=== PATIENT | female | born 1955 | race Caucasian/White ===

== ENCOUNTER → 2017-10-04 09:43 | Outpatient (CLI) | payer OTHER, SELFPAY ==
--- NOTE | 2017-10-04 | DI.US.S_ITS ---
PROCEDURE: US ABDOMEN LIMITED INDICATIONS: LIVER FIBROSIS TECHNIQUE: Real-time focused scanning was performed of the abdomen, with image documentation. COMPARISON: [facility], US, ABDOMEN COMPLETE, 04/24/2017, 10:13. FINDINGS: The liver is at the upper limits of normal measuring 16.7 cm with an overall appearance of coarse in echotexture. The gallbladder has been removed. No biliary dilation. Common bile duct measures 3.4 mm. The pancreas is normal in echotexture. There is a minimal borderline appearance of ductal prominence measuring approximately 15 mm. The spleen is mildly enlarged measuring 14.0 cm without focal lesion. The right kidney is identified and measures 12.1 cm. IMPRESSION: 1. Mild enlargement of the liver, which is decreased compared to prior exam, at which time it measured 22.1 cm. No focal lesion is identified. 2. Borderline prominence of the pancreatic duct not previously visualized. Recommend interval attention to this region on followup exams. Dictated by: Radhika Varner M.D. on 10/04/2017 at 11:52 Approved by: Radhika Varner M.D. on 10/04/2017 at 11:55
[2017-10-06 15:10] LABS: Alpha Fetoprotein 7.9 ng/mL (< 6.1)
== END ==
PROVIDERS: Visit Provider Internal Medicine Gastroenterology
DX: K74.0 Hepatic fibrosis (principal)
CPT/HCPCS: 36415; 76705; 82105

== ENCOUNTER → 2018-06-13 10:32 | Outpatient (CLI) | payer OTHER, SELFPAY ==
--- NOTE | 2018-06-13 | DI.US.S_ITS ---
PROCEDURE: US ABDOMEN LIMITED INDICATIONS: AT RISK FOR CANCER TECHNIQUE: Real-time focused scanning was performed of the abdomen, with image documentation. COMPARISON: [facility], US, US ABDOMEN LIMITED, 10/04/2017, 10:11. FINDINGS: There is a coarse liver echotexture, without a focal mass identified. The pancreas is unremarkable. No pancreatic ductal dilatation is seen. The spleen measures within normal limits at 12.4 cm. IMPRESSION: No liver masses are seen by ultrasound. If it would be helpful for clinical management decision making, please consider a dedicated liver protocol MRI for further evaluation (assuming that there is no contraindication). Dictated by: Carlos Manuel Sheppard M.D. on 06/13/2018 at 12:40 Approved by: Carlos Manuel Sheppard M.D. on 06/13/2018 at 12:41
== END ==
PROVIDERS: Visit Provider Internal Medicine Gastroenterology
DX: Z91.89 Other specified personal risk factors, not elsewhere classified (principal)
CPT/HCPCS: 36415; 76705; 82105

== ENCOUNTER → 2018-06-25 09:28 | Outpatient (CLI) | payer OTHER, SELFPAY ==
--- NOTE | 2018-06-25 | DI.MG.S_ITS ---
BILATERAL DIGITAL SCREENING MAMMOGRAM 3D/2D WITH CAD: 06/25/2018 CLINICAL: Routine screening. Comparison is made to exams dated: 06/11/2017 mammogram - [facility] and 05/01/2012 mammogram - [facility]. The tissue of both breasts is predominantly fatty. Current study was also evaluated with a Computer Aided Detection (CAD) system. No significant masses, calcifications, or other findings are seen in either breast. There has been no significant interval change. IMPRESSION: NEGATIVE There is no mammographic evidence of malignancy. A 1 year screening mammogram is recommended. This exam was interpreted at Station ID: [id number]. NOTE: For mammograms, a report in lay terms will be sent to the patient. Approximately 15% of breast malignancies will not be visualized mammographically. In the management of a palpable breast mass, a negative mammogram must not discourage biopsy of a clinically suspicious lesion. Electronically Signed By: Mary Beth moore/kieran:06/25/2018 12:05:22 copy to: NARA BERGMAN letter sent: Normal Exam ACR BI-RADS Category 1: Negative 3341F
== END ==
DX: Z12.31 Encounter for screening mammogram for malignant neoplasm of breast (principal)
CPT/HCPCS: 77063; 77067

== ENCOUNTER → 2018-07-09 09:13 | Outpatient (CLI) | payer OTHER, SELFPAY ==
[2018-07-09 18:07] LABS: HIV 1 and 2 Antibody NEGATIVE (NEGATIVE)
== END ==
DX: Z71.1 Person with feared health complaint in whom no diagnosis is made (principal)
CPT/HCPCS: 36415; 86703; 87522

== ENCOUNTER → 2018-07-18 10:42 | Outpatient (CLI) | payer OTHER, SELFPAY ==
[2018-07-18 12:05] LABS: Hematocrit 37.5 % (36-46); Hemoglobin 12.5 g/dL (12.0-16.0); Mean Corpuscular HGB Conc 33.3 % (30-36); Mean Corpuscular Hemoglobin 30.5 PG (26-34); Mean Corpuscular Volume 91.6 fL (80-100); Platelet Count 159 X10^3/uL (150-400); White Blood Cell Count 4.7 X10^3/uL (4.5-11.0)
[2018-07-18 12:19] LABS: Alanine Aminotransferase 28 IU/L (9-52); Albumin 4.8 g/dL (3.5-5.0); Albumin Globulin Ratio 1.4 (1.0-2.8); Alkaline Phosphatase 78 U/L (38-126); Aspartate Aminotransferase 17 IU/L (14-36); BUN Creatinine Ratio 31.4 (6-22); Bilirubin Total 0.3 mg/dL (0.2-1.3); Bilirubin Unconjugated 0.2 mg/dL (0.0-1.1); Blood Urea Nitrogen 22 mg/dL (7-17); Carbon Dioxide 26 mmol/L (22-32); Chloride 102 mmol/L (98-107); Estimated Glomerular Filt Rate > 60.0 mL/min (>60); Globulin 3.4 g/dL (1.7-4.1); Glucose 108 mg/dL (80-110); HEMOLYSIS < 15 (0-50); Potassium 4.4 mmol/L (3.4-5.1); Sodium 139 mmol/L (137-145); Total Protein 8.2 g/dL (6.3-8.2)
== END ==
PROVIDERS: Visit Provider Podiatrist
DX: B35.3 Tinea pedis (principal)
CPT/HCPCS: 36415; 80048; 80076; 85027

== ENCOUNTER 2018-09-18 16:50 | Emergency (ER) | payer OTHER, SELFPAY ==
[2018-09-18 16:57] VITALS: BP 140/79; PULSE 86; RESP 20; TEMP 36.9; O2SAT 97
--- NOTE | 2018-09-18 18:06 | ED_ITS ---
HPI - Back Pain/Injury General Chief Complaint: Back Pain/Injury Stated Complaint: PAIN, VOMITING Time Seen by Provider: 09/18/18 17:17 Source: patient Mode of arrival: ambulatory Limitations: no limitations History of Present Illness HPI Narrative: 63-year-old female here for evaluation of right-sided back pain. She also states that she vomited once. Does not know a specific incident however feels like it has been hurting for the past day or so. She thought maybe was worsened when she reached for something at store. No urinary symptoms. No change of bowel. No fevers. Has not taken anything for symptoms. States that it does radiate to her right hip. Related Data Previous Rx's Medication Instructions Recorded cyclobenzaprine 10 mg PO TID PRN #20 tab 09/18/18 tramadol 50 mg PO Q8H PRN #10 tab 09/18/18 Allergies Allergy/AdvReac Type Severity Reaction Status Date / Time Penicillins [PENICILLINS] Allergy Intermediate A CHILD Verified 07/09/18 08:28 Review of Systems Constitutional Denies headache(s) and Denies weakness ENT Ears, Nose, Mouth, and Throat: Denies headache(s) and Denies disequilibrium Cardiovascular Denies chest pain and Denies dyspnea Respiratory Denies dyspnea Gastrointestinal Gastrointestinal: Denies abdominal pain and Reports vomiting Genitourinary Denies dysuria and Denies urinary urgency Musculoskeletal Reports back pain Integumentary/Breasts Denies rash Neurologic Denies headache(s), Denies disequilibrium and Denies weakness Hematologic/Lymphatic Denies easy bleeding and Denies easy bruising [facility] Medical History Hepatitis C carrier (Acute) Surgical History History of third molar tooth extraction Status post cholecystectomy Social History marital status: unmarried,single number of children: 2 lives independently: Yes caregiver/support person: No housing: apartment pets and animals: No education level: high school current occupational exposures/hazards: Yes Smoking Status: Current every day smoker quit status: considering quitting alcohol intake: current Social History marital status: unmarried,single number of children: 2 lives independently: Yes caregiver/support person: No housing: apartment pets and animals: No education level: high school current occupational exposures/hazards: Yes Smoking Status: Current every day smoker quit status: considering quitting alcohol intake: current Exam Initial Vital Signs Initial Vital Signs: Vital Signs Temperature 98.4 F 09/18/18 16:57 Pulse Rate 86 09/18/18 16:57 Respiratory Rate 20 09/18/18 16:57 Blood Pressure 140/79 09/18/18 16:57 Pulse Oximetry 97 09/18/18 16:57 Const General: cooperative, well developed, well groomed and No acute distress Orientation: alert, awake and oriented x3 HENMT Head: normal to inspection and normocephalic Resp Effort & Inspection: normal respiratory effort Auscultation: clear to auscultation bilaterally Cardio Rate: regular rate Rhythm: regular rhythm GI Inspection: non-distended Palpation: soft Back/Spine/Pelvis Back: No CVA tenderness Skin Lesions: no lesions Rashes: no rashes Neuro General: alert and awake Cognition: normal cognition Speech: speech normal Extrem General: normal to inspection and capillary refill normal Course Orders Ordered: ED Orders 09/18/18 18:05 Urine Culture Stat Urine Microscopic Stat 09/18/18 18:28 CT kidney ureter bladder (KUB) Stat 09/18/18 18:45 Basic Metabolic Panel Stat Complete Blood Count AUTO DIFF Stat Discontinued Medications Ketorolac Tromethamine (Toradol) 30 mg IV NOW ONE Stop: 09/18/18 18:27 Last Admin: 09/18/18 18:42 Dose: 30 mg Vital Signs - 8 hr 09/18/18 16:57 09/18/18 19:33 Temperature 98.4 F Pulse Rate 86 91 H Respiratory Rate 20 19 Blood Pressure 140/79 Blood Pressure [Left Arm] 112/89 Pulse Oximetry 97 96 MDM - Back Pain/Injury Lab Data Attestation: I reviewed the patient's lab results. Result diagrams: 09/18/18 18:45 09/18/18 18:45 Lab Results 09/18/18 09/18/18 09/18/18 Range/Units 18:05 18:45 18:45 WBC 7.4 (4.5-11.0) X10^3/uL RBC 4.24 (4.0-5.2) X10^6/uL Hgb 13.1 (12.0-16.0) g/dL Hct 38.5 (36-46) % MCV 90.7 (80-100) fL MCH 31.0 (26-34) PG MCHC 34.2 (30-36) % RDW 15.4 H (11.6-14.8) % Plt Count 173 (150-400) X10^3/uL Neut % (Auto) 74.7 (50-75) % Lymph % (Auto) 17.2 L (25-40) % [place] % (Auto) 6.3 (3-14) % Eos % (Auto) 1.0 L (2-4) % Baso % (Auto) 0.8 (0-2) % Neut # (Auto) 5600 (3167-8667) /uL Lymph # (Auto) 1300 (9077-2522) /uL [place] # (Auto) 500 (0-900) /uL Eos # (Auto) 100 (0-450) /uL Baso # (Auto) 100 (0-100) /uL Sodium 139 (137-145) mmol/L Potassium 4.2 (3.4-5.1) mmol/L Chloride 101 (98-107) mmol/L Carbon Dioxide 28 (22-32) mmol/L BUN 15 (7-17) mg/dL Creatinine 0.60 (0.52-1.04) mg/dL Estimated GFR > 60.0 (>60) mL/min BUN/Creatinine Ratio 25.0 H (6-22) Glucose 121 H (80-110) mg/dL Calcium 9.7 (8.4-10.2) mg/dL Urine RBC 1-5/hpf (0-5/HPF) Urine WBC 1-5/hpf (0-5/HPF) Ur Squamous Epith Cells 0-1 /hpf (0-5/HPF) Urine Bacteria Occasional (0-1) (None) Granular Casts 0-1/lpf (None) Urine Mucus 2+ H (Negative) Ur Culture Indicated? Specimen cultured Urine Dip Bedside Urine Glucose Negative Bedside Urine Bilirubin - Negative Bedside Urine Ketone - Negative Urine Specific [place] 1.030 Bedside Urine Occult Blood +/- Bedside Urine pH 5.5 Bedside Urine Protein - Negative Bedside Urine Urobilinogen - Negative Bedside Urine Nitrite - Negative Bedside Urine Leukocytes ++ [address] scan - abdomen: Radiologist's impression: Kimmie Brown 63 F [address] [address] [address] Scan Report Signed Patient: Kimmie Brown JMR#: [id number] : 5Acct:[id number] Age/Sex: 63 / FDate of Service: 09/18/18 Loc: ED Accession Number: [id number] Procedure: CT kidney ureter bladder (KUB) Ordering Provider: Mike Burnett D.O. PROCEDURE: CT KIDNEY URETER BLADDER (KUB) INDICATIONS: possible right sided stone TECHNIQUE: Noncontrast 5 mm thick sections acquired from the diaphragms to the symphysis. 5 mm thick coronal and sagittal reformats were then performed. For radiation dose reduction, the following was used: automated exposure control, adjustment of mA and/or kV according to patient size. COMPARISON: None. FINDINGS: Image quality: Excellent. Lung bases: Lung bases are clear. Heart size is normal. Urinary system: Both kidneys are normal in size. No kidney stones. No hydronephrosis or perinephric fat stranding. Both ureters appear non-dilated throughout their expected courses. Bladder wall thickness is normal; no calcified bladder stones. Other solid organs: Liver is normal in size. Gallbladder appears previously resected. Pancreas is normal in contours. Spleen is normal in size. No adrenal nodules. Peritoneum and bowel: Unenhanced bowel loops demonstrate normal wall thickness and caliber. No free fluid or air. Nodes and vessels: No retroperitoneal or mesenteric adenopathy by size criteria. Aorta and inferior vena cava are normal in caliber. Abdominal wall: No ventral hernias. Pelvis: No free pelvic fluid. No inguinal hernias or adenopathy. Note is made of a right adnexal 2.8 cm cyst. Cyst rupture is not seen. Bones: No suspicious bony lesions. No vertebral body compression fractures. IMPRESSION: No urinary tract stone or hydronephrosis found on the right. There is a findings several pelvic phleboliths none of which appear in a position that could be potentially within the lumen of either the right or left ureter. 2.8 cm right ovarian cyst may explain current right-sided symptomatology. Dictated by: Doyle Wade M.D. on 09/18/2018 at 19:24 Approved by: Doyle Wade M.D. on 09/18/2018 at 19:26 MDM Narrative Medical decision making narrative: CT scan negative for kidney stone. Labs unremarkable. Patient was given Toradol here in the emergency department. She expressed multiple times that she just wanted something ?to go to sleep ?informed her that we did not have any medication for that particular issue. She stated she cannot take Tylenol or Motrin because of her hepatitis C. the patient did not have a ride home. Will hold on further workup for now. I did give her the phone number for the health resources coordinator in the area in order to make contact the primary provider. She has multiple times for me to make a referral for her to see physical therapy and informed her that I could not do that and she needed to talk with a primary provider. Patient was given return precautions. She expressed understanding. Discharge Plan Departure Patient Disposition: Home Clinical Impression: Back pain Qualifiers: Back pain location: low back pain Chronicity: acute Back pain laterality: left Sciatica presence: without sciatica Qualified Code(s): M54.5 - Low back pain Discharge Date/Time: 09/18/18 19:54 Interventions: ED Discharge Assessment Last Done: 09/18/18 19:53 Instructions: Back Pain (Alternative Therapy), DI for Low Back Pain, Activity May Be Better then Rest for Low Back Pain Recovery Activity Restrictions/Additional Instructions: Recommend you contact the health human resources executive at [phone] to help with establishing a primary provider here in the area. Recommend you stay as active as possible. Take the medications as directed. Prescriptions: New cyclobenzaprine 10 mg tablet 10 mg PO TID PRN (Reason: muscle spasm) Qty: 20 RF: 0 tramadol 50 mg tablet 50 mg PO Q8H PRN (Reason: pain) Qty: 10 RF: 0 Referrals: Charles Llamas MD [Primary Care Provider] -
--- NOTE | 2018-09-18 18:09 | PC.NURSE ---
Pt reports reaching for item at [employer] with sudden onset of pain to flank. unable to sit still. Pacing in room. reports causing nausea. Keeps asking for pain management.
--- NOTE | 2018-09-18 18:28 | DI.CT.S_ITS ---
PROCEDURE: CT KIDNEY URETER BLADDER (KUB) INDICATIONS: possible right sided stone TECHNIQUE: Noncontrast 5 mm thick sections acquired from the diaphragms to the symphysis. 5 mm thick coronal and sagittal reformats were then performed. For radiation dose reduction, the following was used: automated exposure control, adjustment of mA and/or kV according to patient size. COMPARISON: None. FINDINGS: Image quality: Excellent. Lung bases: Lung bases are clear. Heart size is normal. Urinary system: Both kidneys are normal in size. No kidney stones. No hydronephrosis or perinephric fat stranding. Both ureters appear non-dilated throughout their expected courses. Bladder wall thickness is normal; no calcified bladder stones. Other solid organs: Liver is normal in size. Gallbladder appears previously resected. Pancreas is normal in contours. Spleen is normal in size. No adrenal nodules. Peritoneum and bowel: Unenhanced bowel loops demonstrate normal wall thickness and caliber. No free fluid or air. Nodes and vessels: No retroperitoneal or mesenteric adenopathy by size criteria. Aorta and inferior vena cava are normal in caliber. Abdominal wall: No ventral hernias. Pelvis: No free pelvic fluid. No inguinal hernias or adenopathy. Note is made of a right adnexal 2.8 cm cyst. Cyst rupture is not seen. Bones: No suspicious bony lesions. No vertebral body compression fractures. IMPRESSION: No urinary tract stone or hydronephrosis found on the right. There is a findings several pelvic phleboliths none of which appear in a position that could be potentially within the lumen of either the right or left ureter. 2.8 cm right ovarian cyst may explain current right-sided symptomatology. Dictated by: Doyle Wade M.D. on 09/18/2018 at 19:24 Approved by: Doyle Wade M.D. on 09/18/2018 at 19:26
[2018-09-18 18:33] LABS: Bacteria Urine Occasional (0-1); Culture Indicated Urine Specimen Cultured; Granular Casts Urine 0-1/LPF; Mucus Urine 2+ (Negative); RBC Urine 1-5/HPF (0-5/HPF); Squamous Epithelial Cell Urine 0-1 /HPF (0-5/HPF); WBC Urine 1-5/HPF (0-5/HPF)
[2018-09-18] MEDS: KETOROLAC 60 MG/2 ML VIAL 30 MG IV (18:42)
[2018-09-18 18:56] LABS: Add Manual Diff / Slide Review NO; Basophils Absolute Auto 100 /uL (0-100); Basophils Percent Auto 0.8 % (0-2); Eosinophils Absolute Auto 100 /uL (0-450); Hematocrit 38.5 % (36-46); Hemoglobin 13.1 g/dL (12.0-16.0); Lymphocytes Absolute Auto 1300 /uL (1100-4500); Lymphocytes Percent Auto 17.2 % (25-40); Mean Corpuscular HGB Conc 34.2 % (30-36); Mean Corpuscular Volume 90.7 fL (80-100); Monocytes Absolute Auto 500 /uL (0-900); Monocytes Percent Auto 6.3 % (3-14); Neutrophils Absolute Auto 5600 /uL (1500-7000); Neutrophils Percent Auto 74.7 % (50-75); Platelet Count 173 X10^3/uL (150-400); Red Blood Cell Count 4.24 X10^6/uL (4.0-5.2); Red Cell Distribution Width 15.4 % (11.6-14.8); White Blood Cell Count 7.4 X10^3/uL (4.5-11.0)
[2018-09-18 19:07] LABS: Blood Urea Nitrogen 15 mg/dL (7-17); Calcium 9.7 mg/dL (8.4-10.2); Carbon Dioxide 28 mmol/L (22-32); Chloride 101 mmol/L (98-107); Estimated Glomerular Filt Rate > 60.0 mL/min (>60); Glucose 121 mg/dL (80-110); HEMOLYSIS < 15 (0-50); Potassium 4.2 mmol/L (3.4-5.1); Sodium 139 mmol/L (137-145)
[2018-09-18 19:33] VITALS: BP 112/89; PULSE 91; RESP 19; O2SAT 96
== END 2018-09-18 19:54 | disposition home or self-care (01) ==
PROVIDERS: Emergency Provider Emergency Medicine
DX: M54.5 Low back pain (principal); R11.11 Vomiting without nausea
CPT/HCPCS: 36591; 74176; 80048; 81003; 81015; 85025; 87086; 96374; 99282; 99284; J1885

== ENCOUNTER → 2018-10-03 09:19 | Outpatient (CLI) | payer OTHER, SELFPAY ==
[2018-10-03 11:20] LABS: Cancer Antigen 125 6 U/mL (0-35)
[2018-10-05 13:50] LABS: Human HE4 Antigen 46 pmol/L
== END ==
DX: N83.9 Noninflammatory disorder of ovary, fallopian tube and broad ligament, unspecified (principal)
CPT/HCPCS: 36415; 86304; 86305

== ENCOUNTER → 2018-12-10 14:26 | Outpatient (CLI) | payer OTHER, SELFPAY ==
[2018-12-10 15:12] LABS: Add Manual Diff / Slide Review NO; Basophils Absolute Auto 0 /uL (0-100); Basophils Percent Auto 0.9 % (0-2); Eosinophils Absolute Auto 200 /uL (0-450); Eosinophils Percent Auto 3.6 % (2-4); Hematocrit 35.9 % (36-46); Hemoglobin 12.1 g/dL (12.0-16.0); Lymphocytes Absolute Auto 1400 /uL (1100-4500); Lymphocytes Percent Auto 28.6 % (25-40); Mean Corpuscular HGB Conc 33.6 % (30-36); Mean Corpuscular Hemoglobin 30.9 PG (26-34); Mean Corpuscular Volume 91.8 fL (80-100); Monocytes Absolute Auto 500 /uL (0-900); Monocytes Percent Auto 10.9 % (3-14); Neutrophils Absolute Auto 2600 /uL (1500-7000); Platelet Count 143 X10^3/uL (150-400); Red Blood Cell Count 3.91 X10^6/uL (4.0-5.2); Red Cell Distribution Width 15.8 % (11.6-14.8); White Blood Cell Count 4.7 X10^3/uL (4.5-11.0)
[2018-12-10 15:56] LABS: BUN Creatinine Ratio 24.4 (6-22); Blood Urea Nitrogen 22 mg/dL (7-17); Calcium 9.9 mg/dL (8.4-10.2); Carbon Dioxide 27 mmol/L (22-32); Chloride 102 mmol/L (98-107); Estimated Glomerular Filt Rate > 60.0 mL/min (>60); Glucose 109 mg/dL (80-110); HEMOLYSIS < 15 (0-50); Potassium 4.2 mmol/L (3.4-5.1); Sodium 139 mmol/L (137-145)
== END ==
PROVIDERS: PCP Student in an Organized Health Care Education/Training Program; Visit Provider Hospitalist
DX: R42 Dizziness and giddiness (principal)
CPT/HCPCS: 36415; 80048; 85025

== ENCOUNTER → 2018-12-13 13:21 | Outpatient (CLI) | payer OTHER, SELFPAY ==
--- NOTE | 2018-12-13 13:25 | DI.US.S_ITS ---
PROCEDURE: US PERIPH VENOUS LOW EXTREM LT INDICATIONS: LEFT LEG PAIN TECHNIQUE: Real-time imaging, as well as color and pulse Doppler interrogation, were performed of the lower extremity deep veins from the inguinal ligament to the popliteal fossa. COMPARISON: None. FINDINGS: The common femoral, femoral and popliteal veins are normally compressible, and free of intraluminal thrombus. Color and pulse Doppler demonstrate normal phasic intraluminal flow. There is normal augmentation response to distal compression maneuver. IMPRESSION: No DVT found. Dictated by: Doyle Wade M.D. on 12/13/2018 at 14:49 Approved by: Doyle Wade M.D. on 12/13/2018 at 14:57
== END ==
PROVIDERS: PCP Student in an Organized Health Care Education/Training Program; Visit Provider Hospitalist
DX: M79.605 Pain in left leg (principal)
CPT/HCPCS: 93971

== ENCOUNTER → 2019-01-09 14:40 | Outpatient (CLI) | payer OTHER, SELFPAY ==
--- NOTE | 2019-01-09 | DI.US.S_ITS ---
PROCEDURE: US ABDOMEN LIMITED INDICATIONS: LIVER CELL CARCINOMA TECHNIQUE: Real-time focused scanning was performed of the abdomen, with image documentation. COMPARISON: [facility], CT, CT KIDNEY URETER BLADDER (KUB), 09/18/2018, 18:53. [facility], US, US ABDOMEN LIMITED, 06/13/2018, 11:09. FINDINGS: Liver is diffusely increased in echogenicity. No focal hepatic abnormalities identified. Normal hepatic size. Gallbladder surgically absent. No biliary dilatation. Normal pancreas. Right kidney grossly normal. IMPRESSION: Increased hepatic echogenicity noted possibly related to hepatic steatosis but other sources of hepatocellular disease cannot be excluded. Recommend clinical correlation. Dictated by: Jethro CAMPO Interpreted: Price Mcdowell MD on 01/09/2019 at 16:37 Approved by: Price Mcdowell M.D. on 01/09/2019 at 17:31
[2019-01-11 15:14] LABS: Alpha Fetoprotein 5.4 ng/mL (< 6.1)
== END ==
PROVIDERS: PCP Student in an Organized Health Care Education/Training Program; Visit Provider Internal Medicine Gastroenterology
DX: C22.0 Liver cell carcinoma (principal); Z91.89 Other specified personal risk factors, not elsewhere classified
CPT/HCPCS: 36415; 76705; 82105

== ENCOUNTER → 2019-02-20 15:02 | Outpatient (CLI) | payer OTHER, SELFPAY ==
[2019-02-20 15:31] LABS: Hemoglobin A1C% w Est Avg Glu 5.3 % (4.0-6.0)
[2019-02-20 16:10] LABS: Cholesterol 153 mg/dL (140-199); HDL Cholesterol 46 mg/dL (40-60); LDL Cholesterol Calculated 79 mg/dL (<100); Triglycerides 140 mg/dL (35-150)
== END ==
PROVIDERS: PCP Student in an Organized Health Care Education/Training Program; Visit Provider Student in an Organized Health Care Education/Training Program
DX: I67.9 Cerebrovascular disease, unspecified (principal); R73.9 Hyperglycemia, unspecified
CPT/HCPCS: 36415; 80061; 83036

== ENCOUNTER → 2019-12-10 17:09 | Outpatient (CLI) | payer OTHER, SELFPAY ==
--- NOTE | 2019-12-10 17:35 | DI.MG.S_ITS ---
Patient Name: MAGED CABEZAS date: 1955 Sex: F Attending Physician: Muriel Indications: Date: 12/10/2019 17:28 At the request of: SHANI FORRESTER Procedure: MM screening mammo BI BILATERAL DIGITAL SCREENING MAMMOGRAM 3D/2D WITH CAD: 12/10/2019 CLINICAL: Routine screening. Comparison is made to exams dated: 06/25/2018 mammogram - [facility], 06/11/2017 mammogram - [facility], and 05/01/2012 mammogram - [facility]. There are scattered fibroglandular elements in both breasts. Current study was also evaluated with a Computer Aided Detection (CAD) system. No significant masses, calcifications, or other findings are seen in either breast. There has been no significant interval change. IMPRESSION: NEGATIVE There is no mammographic evidence of malignancy. A 1 year screening mammogram is recommended. This exam was interpreted at Station ID: [id number]. NOTE: For mammograms, a report in lay terms will be sent to the patient. Approximately 15% of breast malignancies will not be visualized mammographically. In the management of a palpable breast mass, a negative mammogram must not discourage biopsy of a clinically suspicious lesion. Electronically Signed By: Todd de santiago/kieran:12/11/2019 08:41:31 letter sent: Normal Exam ACR BI-RADS Category 1: Negative 3341F
== END ==
PROVIDERS: PCP Student in an Organized Health Care Education/Training Program
DX: Z12.31 Encounter for screening mammogram for malignant neoplasm of breast (principal)
CPT/HCPCS: 77063; 77067

== ENCOUNTER → 2019-12-11 11:56 | Outpatient (CLI) | payer OTHER, SELFPAY ==
[2019-12-12 10:09] LABS: COVID19 Sendout Not Detected (Not Detected)
== END ==
PROVIDERS: PCP Student in an Organized Health Care Education/Training Program; Visit Provider Nurse Practitioner
DX: Z11.59 Encounter for screening for other viral diseases (principal)
CPT/HCPCS: 87635

== ENCOUNTER → 2019-12-15 15:22 | Outpatient (CLI) | payer OTHER, SELFPAY | PROVIDERS: PCP Student in an Organized Health Care Education/Training Program; Visit Provider Physician Assistant | DX: R30.0 Dysuria (principal); Z11.59 Encounter for screening for other viral diseases | CPT/HCPCS: 87070; 87086 ==

== ENCOUNTER → 2020-08-04 09:27 | Outpatient (CLI) | payer OTHER, SELFPAY ==
[2020-08-04 11:20] LABS: COVID19 -Nasal RAPID Negative (Negative)
== END ==
PROVIDERS: PCP Student in an Organized Health Care Education/Training Program; Visit Provider Surgery
DX: Z20.822 Contact with and (suspected) exposure to COVID-19 (principal)
CPT/HCPCS: 87635; C9803

== ENCOUNTER 2020-08-05 14:02 | Day surgery (SDC) | payer OTHER, SELFPAY ==
[2020-08-05] MEDS: LACTATED RINGERS 1,000 ML 200 ML IV (15:02)
[2020-08-05 15:09] VITALS: BP 126/68; PULSE 84; RESP 20; TEMP 36.7; O2SAT 96; BMI 29.6
--- NOTE | 2020-08-05 15:27 | PM.PREOP ---
Pre-operative Note Interval Note History & Physical reviewed/Exam performed by Physician: Yes Changes to H&P: No
[2020-08-05] MEDS: MIDAZOLAM 5 MG/5 ML VIAL IV (15:54)
[2020-08-05] MEDS: fentaNYL 250 MCG/5 ML INJ IV (15:54)
[2020-08-05] MEDS: LIDOCAINE 4% SOLN 50 ML 20 ML TOP (16:02)
--- NOTE | 2020-08-05 16:10 | PM.OP.ENDO ---
Operative Date/Time/Diagnoses Date of procedure: 08/05/20 Time of procedure: 16:10 Pre-op diagnosis: Esophageal dysphagia Post-op diagnosis: same Procedure & Clinicians Study performed: Esophagoduodenoscopy, colonoscopy Same procedure as scheduled: Yes Indications: Screening colonoscopy, esophageal dysphagia Surgeon: Rahul Mosqueda Procedure Notes Procedure in detail: Medications: Conscious sedation using 5mg IV midazolam and 150mcg IV of fentanyl The history and physical was performed/updated and the patient is ASA class is 2. The procedure was discussed in detail with the patient. Potential risks complications including infection, bleeding, missed diagnosis, perforation, need for surgery, and were explained. Their questions were answered and informed consent was obtained. Patient placed in left lateral decubitus position. Time out was performed. Procedural sedation was administered with Versed and Fentanyl. A bite block was placed. the scope was inserted into the mouth and advanced through the esophagus and into the stomach. There was no esophageal stricture. The pylorus was intubated and the duodenum was normal to the 2nd portion. The scope was retroflexed within the stomach and there was a small hiatal hernia. No ulcers, or gastritis. The scope was withdrawn into the esophagus the Z line was seen at 40 cm from the incisions. There was no Contreras's esophagitis or masses or strictures. Stomach was desufflated and scope removed. Patient tolerated procedure well. Examination began with a thorough inspection of the perianal area there was no evidence of fissures, fistulae, external hemorrhoids or cutaneous malignancy. The colonoscopy scope was then placed into the anal canal and was advanced to the cecum, which was identified by the ileocecal valve, the appendiceal orifice and the confluence of the taenia. The scope was then slowly withdrawn examining colon thoroughly in all directions, irrigating it of any residual stool. 1. No masses or polyps 2. Sigmoid diverticulosis The patient tolerated the procedure well. They will be discharged once criteria are met. The prep was of good/excellent quality. The withdrawl time was 7 minutes. The sedation time was 25 minutes. Specimen(s): none sent Complications: none Impression: Normal colonoscopy and esophagoduodenoscopy Post-procedure Recommendations: Colonscopy in 10 years and Reflux diet Disposition: same day surgery
[2020-08-05 16:11] VITALS: BP 121/67; PULSE 94; RESP 14; TEMP 36.1; O2SAT 93
[2020-08-05 16:21] VITALS: BP 116/68; PULSE 88; RESP 16; O2SAT 94
[2020-08-05 16:26] VITALS: BP 112/69; PULSE 85; RESP 14; TEMP 36.3; O2SAT 94
== END 2020-08-05 16:49 | disposition home or self-care (01) ==
PROVIDERS: PCP Student in an Organized Health Care Education/Training Program; Referring Provider Surgery; Visit Provider Surgery
PROC: 0DJ08ZZ Inspection of Upper Intestinal Tract, Via Natural or Artificial Opening Endoscopic (ICD-10-PCS; CPT 43235; principal; 2020-08-05 15:15)
PROC: 0DJD8ZZ Inspection of Lower Intestinal Tract, Via Natural or Artificial Opening Endoscopic (ICD-10-PCS; CPT 45378; 2020-08-05 15:15)
DX: Z12.11 Encounter for screening for malignant neoplasm of colon (principal); R13.10 Dysphagia, unspecified; F17.210 Nicotine dependence, cigarettes, uncomplicated; B19.20 Unspecified viral hepatitis C without hepatic coma; K57.30 Diverticulosis of large intestine without perforation or abscess without bleeding
CPT/HCPCS: 43235; 45378; 99152; J2250; J3010

== ENCOUNTER → 2020-12-23 13:47 | Outpatient (CLI) | payer OTHER, SELFPAY ==
[2020-12-23 14:20] LABS: Add Manual Diff / Slide Review NO; Basophils Absolute Auto 100 /uL (0-100); Eosinophils Absolute Auto 200 /uL (0-450); Eosinophils Percent Auto 3.2 % (2-4); Hematocrit 35.8 % (36-46); Lymphocytes Absolute Auto 1600 /uL (1100-4500); Lymphocytes Percent Auto 32.3 % (25-40); Mean Corpuscular HGB Conc 33.5 % (30-36); Mean Corpuscular Hemoglobin 30.5 PG (26-34); Mean Corpuscular Volume 90.9 fL (80-100); Monocytes Absolute Auto 500 /uL (0-900); Monocytes Percent Auto 9.4 % (3-14); Neutrophils Absolute Auto 2600 /uL (1500-7000); Neutrophils Percent Auto 54.1 % (50-75); Platelet Count 170 X10^3/uL (150-400); Red Blood Cell Count 3.94 X10^6/uL (4.0-5.2); Red Cell Distribution Width 15.3 % (11.6-14.8); White Blood Cell Count 4.8 X10^3/uL (4.5-11.0)
[2020-12-23 14:37] LABS: Alanine Aminotransferase 14 IU/L (<35); Albumin 4.9 g/dL (3.5-5.0); Albumin Globulin Ratio 1.5 (1.0-2.8); Alkaline Phosphatase 58 U/L (38-126); Aspartate Aminotransferase 21 IU/L (14-36); Bilirubin Total 0.6 mg/dL (0.2-1.3); Blood Urea Nitrogen 18 mg/dL (7-17); Calcium 9.7 mg/dL (8.4-10.2); Carbon Dioxide 24 mmol/L (22-32); Chloride 106 mmol/L (98-107); Cholesterol 169 mg/dL (140-199); Estimated Glomerular Filt Rate > 60.0 mL/min (>60); Globulin 3.3 g/dL (1.7-4.1); Glucose 99 mg/dL (80-110); HDL Cholesterol 49 mg/dL (40-60); HEMOLYSIS < 15 (0-50); LDL Cholesterol Calculated 92 mg/dL (<100); Potassium 4.2 mmol/L (3.4-5.1); Sodium 138 mmol/L (137-145); Total Protein 8.2 g/dL (6.3-8.2); Triglycerides 141 mg/dL (35-150)
[2020-12-23 15:11] LABS: Vitamin D 25 Hydroxy (D3) 36.5 ng/mL (30.0-100.0)
[2020-12-23 15:29] LABS: Vitamin B12 316 pg/mL (239-931)
[2020-12-24 06:07] LABS: Alpha Fetoprotein 4.8 ng/mL (0.0-8.3)
== END ==
PROVIDERS: PCP Student in an Organized Health Care Education/Training Program; Referring Provider Student in an Organized Health Care Education/Training Program; Visit Provider Student in an Organized Health Care Education/Training Program
DX: B18.2 Chronic viral hepatitis C (principal); Z87.19 Personal history of other diseases of the digestive system; E55.9 Vitamin D deficiency, unspecified; Z13.220 Encounter for screening for lipoid disorders
CPT/HCPCS: 36415; 80053; 80061; 82105; 82306; 82607; 85025; 86900; 86901

== ENCOUNTER → 2020-12-27 13:58 | Outpatient (CLI) | payer OTHER, SELFPAY ==
--- NOTE | 2020-12-27 | DI.MG.S_ITS ---
BILATERAL DIGITAL SCREENING MAMMOGRAM 3D/2D WITH CAD: 12/27/2020 CLINICAL: Routine screening. Comparison is made to exams dated: 12/10/2019 mammogram, 06/25/2018 mammogram - [facility], and 06/11/2017 mammogram - [facility]. There are scattered fibroglandular elements in both breasts. Current study was also evaluated with a Computer Aided Detection (CAD) system. There is an asymmetry in the left breast middle depth superior region seen on the mediolateral oblique view only. No other significant masses, calcifications, or other findings are seen in either breast. IMPRESSION: INCOMPLETE: NEEDS ADDITIONAL IMAGING EVALUATION The asymmetry in the left breast most likely is fibroglandular tissue with superimposition of tissue but is indeterminate. Additional views with possible ultrasound are recommended. This exam was interpreted at Station ID: [id number]. NOTE: For mammograms, a report in lay terms will be sent to the patient. Approximately 15% of breast malignancies will not be visualized mammographically. In the management of a palpable breast mass, a negative mammogram must not discourage biopsy of a clinically suspicious lesion. Electronically Signed By: Daniel Hanks acr/:12/27/2020 17:31:47 letter sent: Additional Imaging Needed ACR BI-RADS Category 0: Incomplete 3340F
== END ==
PROVIDERS: PCP Student in an Organized Health Care Education/Training Program; Referring Provider Student in an Organized Health Care Education/Training Program; Visit Provider Student in an Organized Health Care Education/Training Program
DX: Z12.31 Encounter for screening mammogram for malignant neoplasm of breast (principal)
CPT/HCPCS: 77063; 77067

== ENCOUNTER → 2021-01-11 13:35 | Outpatient (CLI) | payer OTHER, SELFPAY ==
[2021-01-11 14:20] LABS: Appearance Urine UA CLEAR; Bilirubin Urine UA NEGATIVE (NEGATIVE); Color Urine UA YELLOW; Glucose Urine UA NEGATIVE (Negative); Ketones Urine UA NEGATIVE (NEGATIVE); Leukocyte Esterase Urine UA 1+ (NEGATIVE); Nitrite Urine UA NEGATIVE (Negative); Occult Blood Urine UA 3+ (Negative); Protein Urine UA NEGATIVE (Negative); Specific Gravity Urine UA >=1.030 (1.000-1.035); Urobilinogen Urine UA 0.2 E.U./dL (0.2)
[2021-01-11 14:26] LABS: Bacteria Urine None Seen; Culture Indicated Urine Specimen Cultured; RBC Urine 5-10/HPF (0-5/HPF); Squamous Epithelial Cell Urine 0-1 /HPF (0-5/HPF); WBC Urine 10-30/HPF (0-5/HPF)
== END ==
PROVIDERS: PCP Student in an Organized Health Care Education/Training Program; Referring Provider Student in an Organized Health Care Education/Training Program; Visit Provider Student in an Organized Health Care Education/Training Program
DX: R31.9 Hematuria, unspecified (principal)
CPT/HCPCS: 81001; 87077; 87086; 87186

== ENCOUNTER → 2021-01-14 08:49 | Outpatient (CLI) | payer OTHER, SELFPAY ==
--- NOTE | 2021-01-14 | DI.MG.S_ITS ---
UNILATERAL LEFT DIGITAL DIAGNOSTIC MAMMOGRAM 3D/2D WITH ADDITIONAL VIEWS: 01/14/2021 CLINICAL: Additional evaluation requested from prior study. Comparison is made to exams dated: 12/27/2020 mammogram, 12/10/2019 mammogram, and 06/25/2018 mammogram - [facility]. There are scattered fibroglandular elements in left breast. The previously described equal density asymmetry in the left breast middle depth lateral region seen on the craniocaudal view only is no longer seen and is consistent with summation artifact. No other significant masses or calcifications are seen in the breast. IMPRESSION: BENIGN The previously described asymmetry disperses with additional views and is consistent with summation artifact. There is no mammographic evidence of malignancy. A 1 year screening mammogram is recommended. Findings and recommendations were conveyed to the patient during today's evaluation. This exam was interpreted at Station ID: [id number]. NOTE: For mammograms, a report in lay terms will be sent to the patient. Approximately 15% of breast malignancies will not be visualized mammographically. In the management of a palpable breast mass, a negative mammogram must not discourage biopsy of a clinically suspicious lesion. Electronically Signed By: Jensen Denson M.D. aty/:01/14/2021 09:13:30 letter sent: Normal Exam ACR BI-RADS Category 2: Benign Finding(s) 3342F
== END ==
PROVIDERS: PCP Student in an Organized Health Care Education/Training Program; Referring Provider Student in an Organized Health Care Education/Training Program; Visit Provider Student in an Organized Health Care Education/Training Program
DX: R92.8 Other abnormal and inconclusive findings on diagnostic imaging of breast (principal); N64.89 Other specified disorders of breast
CPT/HCPCS: 77065; G0279

== ENCOUNTER → 2021-02-21 08:24 | Outpatient (CLI) | payer OTHER, SELFPAY ==
--- NOTE | 2021-02-21 08:25 | DI.US.S_ITS ---
PROCEDURE: US PELVIC COMPLETE INDICATIONS: PAIN TECHNIQUE: Real-time scanning was performed of the pelvic organs, with image documentation. Additional endovaginal scanning was necessary due to incomplete visualization of the adnexal and endometrial structures by transabdominal scanning. COMPARISON: [facility], US, US PELVIC COMPLETE, 10/03/2018, 9:07. FINDINGS: Uterus: Uterus is normal in size at 6.1 x 2.7 x 4.2 cm. The endometrium measures 1.4 mm in combined thickness. Fluid is present within the canal, unchanged. Ovaries: Right ovary measures 4.1 x x 2.4 x 3.3 cm. Mild appearance of increased echogenicity in the right ovary is present. Left ovary is not visualized. Other: No pathologic free abdominal or pelvic fluid. IMPRESSION: 1. Mild nonspecific appearance of echogenicity in the right ovary. This could be artifactual. 6 week interval followup is recommended. Dictated by: Radhika Varner M.D. on 02/21/2021 at 11:55 Approved by: Radhika Varner M.D. on 02/21/2021 at 12:04
== END ==
PROVIDERS: PCP Student in an Organized Health Care Education/Training Program; Referring Provider Obstetrics & Gynecology; Visit Provider Obstetrics & Gynecology
DX: R10.2 Pelvic and perineal pain (principal)
CPT/HCPCS: 76830; 76856

== ENCOUNTER → 2021-08-05 15:55 | Outpatient (CLI) | payer OTHER, SELFPAY ==
[2021-08-05 17:41] LABS: Appearance Urine UA CLEAR; Bilirubin Urine UA NEGATIVE (NEGATIVE); Color Urine UA YELLOW; Glucose Urine UA NEGATIVE (Negative); Ketones Urine UA NEGATIVE (NEGATIVE); Leukocyte Esterase Urine UA NEGATIVE (NEGATIVE); Nitrite Urine UA NEGATIVE (Negative); Occult Blood Urine UA 3+ (Negative); Protein Urine UA NEGATIVE (Negative); Specific Gravity Urine UA >=1.030 (1.000-1.035); Urobilinogen Urine UA 0.2 E.U./dL (0.2)
[2021-08-05 18:09] LABS: Amorphous Sediment Urine 2+; Bacteria Urine Occasional (0-1); Culture Indicated Urine Cult Not Indicated; RBC Urine 5-10/HPF (0-5/HPF); Squamous Epithelial Cell Urine 5-10 /HPF (0-5/HPF); WBC Urine None Seen (0-5/HPF)
== END ==
PROVIDERS: PCP Student in an Organized Health Care Education/Training Program; Referring Provider Student in an Organized Health Care Education/Training Program; Visit Provider Student in an Organized Health Care Education/Training Program
DX: R31.9 Hematuria, unspecified (principal)
CPT/HCPCS: 81001

== ENCOUNTER → 2021-08-16 13:07 | Outpatient (CLI) | payer OTHER, SELFPAY ==
[2021-08-16 16:38] LABS: Alanine Aminotransferase 13 IU/L (<35); Albumin 4.5 g/dL (3.5-5.0); Albumin Globulin Ratio 1.5 (1.0-2.8); Alkaline Phosphatase 79 U/L (38-126); Aspartate Aminotransferase 18 IU/L (14-36); Bilirubin Total 0.3 mg/dL (0.2-1.3); Blood Urea Nitrogen 20 mg/dL (7-17); Calcium 9.3 mg/dL (8.4-10.2); Carbon Dioxide 24 mmol/L (22-32); Chloride 105 mmol/L (98-107); Estimated Glomerular Filt Rate > 60 mL/min (>60); Globulin 3.1 g/dL (1.7-4.1); Glucose 97 mg/dL (80-110); HEMOLYSIS < 15 (0-50); Potassium 4.4 mmol/L (3.4-5.1); Sodium 139 mmol/L (137-145); Total Protein 7.6 g/dL (6.3-8.2)
== END ==
PROVIDERS: PCP Student in an Organized Health Care Education/Training Program; Referring Provider Student in an Organized Health Care Education/Training Program; Visit Provider Student in an Organized Health Care Education/Training Program
DX: Z01.812 Encounter for preprocedural laboratory examination (principal)
CPT/HCPCS: 36415; 80053

== ENCOUNTER → 2021-08-16 13:12 | Outpatient (CLI) | payer OTHER, SELFPAY | PROVIDERS: PCP Student in an Organized Health Care Education/Training Program; Referring Provider Student in an Organized Health Care Education/Training Program; Visit Provider Student in an Organized Health Care Education/Training Program | DX: R31.9 Hematuria, unspecified (principal); Z53.8 Procedure and treatment not carried out for other reasons ==

== ENCOUNTER → 2021-08-19 13:18 | Outpatient (CLI) | payer OTHER, SELFPAY ==
--- NOTE | 2021-08-19 13:19 | DI.CT.S_ITS ---
PROCEDURE: CT ABDOMEN PELVIS WO/W CON INDICATIONS: hematuria TECHNIQUE: Optional 5 mm thick noncontrast images acquired from the diaphragm to the symphysis pubis. After the administration of intravenous contrast, 5 mm thick images acquired from the diaphragm to the symphysis pubis after a 10-minute delay. 2 mm thick coronal and sagittal reformats were then performed of the kidneys and ureters. For radiation dose reduction, the following was used: automated exposure control, adjustment of mA and/or kV according to patient size. COMPARISON: [facility], CT, CT KIDNEY URETER BLADDER (KUB), 09/18/2018, 18:53. FINDINGS: Image quality: Excellent. Lung bases: Lung bases are clear. Heart size is normal. Small hiatal hernia. Urinary system: Both kidneys are normal in size, without hydronephrosis or nephrolithiasis on pre-contrast images. No perinephric fat stranding. There is normal bilateral renal enhancement. Renal calyces appear normal in morphology when filled with contrast. Opacified portions of both ureters demonstrate normal caliber. Bladder wall thickness is normal. No calcified bladder stones. Other solid organs: Liver is normal in size and enhancement. Gallbladder is surgically absent . Biliary system is non dilated. Pancreas enhances normally. Spleen is normal in size and enhancement. No adrenal nodules. Peritoneum and bowel: Bowel loops demonstrate normal wall thickness and caliber. No free fluid or air. Nodes and vessels: No retroperitoneal or mesenteric adenopathy by size criteria. Aorta and inferior vena cava are normal in size. Abdominal wall: Trace fat containing periumbilical hernia. Pelvis: No pathologic free pelvic fluid. No inguinal hernias or adenopathy. 2.4 x 2.8 cm hypoattenuating lesion in the right adnexa, may reflect an ovarian cyst. Bones: No suspicious bony lesions. Dextrocurvature of the spine with multifocal degenerative change. No vertebral body compression fractures. IMPRESSION: 1. No significant renal abnormality. Dictated by: Leonidas Leach M.D. on 08/19/2021 at 16:36 Approved by: Leonidas Leach M.D. on 08/19/2021 at 16:52
== END ==
PROVIDERS: PCP Student in an Organized Health Care Education/Training Program; Referring Provider Student in an Organized Health Care Education/Training Program; Visit Provider Student in an Organized Health Care Education/Training Program
DX: R31.9 Hematuria, unspecified (principal); K44.9 Diaphragmatic hernia without obstruction or gangrene; N94.9 Unspecified condition associated with female genital organs and menstrual cycle; Z90.49 Acquired absence of other specified parts of digestive tract
CPT/HCPCS: 74178; Q9967

== ENCOUNTER → 2021-09-06 14:22 | Outpatient (CLI) | payer OTHER, SELFPAY ==
--- NOTE | 2021-09-06 14:23 | DI.US.S_ITS ---
PROCEDURE: US PELVIC COMPLETE INDICATIONS: 6 wk Re Check R ovary TECHNIQUE: Real-time scanning was performed of the pelvic organs, with image documentation. Additional endovaginal scanning was necessary due to incomplete visualization of the adnexal and endometrial structures by transabdominal scanning. COMPARISON: [facility], CT, CT ABDOMEN PELVIS WO/W CON, 08/19/2021, 14:18. [facility], US, US PELVIC COMPLETE, 02/21/2021, 9:08. FINDINGS: Uterus: Uterus is anteverted and normal in size at 6.5 x 2.7 x 4.1 cm. The myometrium is homogeneous. The endometrium measures 1.7 mm combined thickness. There is a fluid within the in note medial canal Ovaries: The right ovary measures 4.4 x 2.8 x 3.0 cm. There is a 2.8 x 2.4 x 2.7 cm isoechoic area in the ovary, unchanged in appearance. The left ovary is not visualized. Other: No pathologic free abdominal or pelvic fluid. Echogenic material within the bladder. IMPRESSION: 1. There is fluid within the endometrial cavity, which is likely related to menses. Uterus is otherwise normal. 2. No significant change in the appearance of the 2.8 x 2.4 x 2.7 cm isoechoic structure in the right ovary, indeterminate in nature. If there is clinical symptom of pain and discomfort, gynecological MRI is suggested. 3. Left ovary is not visualized. 4. Echogenic foci are seen within the urinary bladder, uncertain clinical significance. We strive to produce accurate, complete, and clear reports of imaging services. To assist us in improving patient care, this report was composed using standard report templates and voice recognition software. Therefore, it may contain abnormal punctuation, insertions and/or omissions. Occasional wrong-word or sound-alike substitutions may occur. Though we review the report and make efforts to correct it, we do recommend that the report be read carefully in proper context to recognize any text inaccuracies. Dictated by: Epifanio Dinh M.D. on 09/06/2021 at 17:57 Approved by: Epifanio Dinh M.D. on 09/06/2021 at 18:08
== END ==
PROVIDERS: PCP Student in an Organized Health Care Education/Training Program; Referring Provider Obstetrics & Gynecology; Visit Provider Obstetrics & Gynecology
DX: N83.201 Unspecified ovarian cyst, right side (principal); R10.2 Pelvic and perineal pain
CPT/HCPCS: 76830; 76856

== ENCOUNTER → 2021-09-29 15:56 | Outpatient (CLI) | payer OTHER, SELFPAY ==
--- NOTE | 2021-09-29 15:58 | DI.MRI.S_ITS ---
PROCEDURE: MR PELVIS WO/W CON INDICATIONS: RLQ pain TECHNIQUE: Coronal HASTE, sagittal breath-hold T2 FSE; axial T1 FSE with and without fat saturation through the pelvis. Optional long- and short-axis uterine nonbreath-hold T2 FSE through the uterus. Sagittal or axial dynamic VIBE during administration of contrast. Post-contrast axial or coronal VIBE/2-D FLASH with fat saturation from the iliac crests to the symphysis. Optional diffusion weighted imaging and ADC may be performed. COMPARISON: [facility], CT, CT KIDNEY URETER BLADDER (KUB), 09/18/2018, 18:53. [facility], US, US PELVIC COMPLETE, 09/06/2021, 15:00. [facility], CT, CT ABDOMEN PELVIS WO/W CON, 08/19/2021, 14:18. FINDINGS: Image quality: Excellent. Uterus: Uterus is anteverted and normal in size measuring 5.6 cm. Endometrium is normal in thickness and measures 0.3 cm. Junctional zone is normal in thickness at 12 mm or less. No fibroids identified. Adnexa: Right ovarian cyst measuring 3.6 x 3.1 x 2.7 cm, (4/ and 11/30). The cyst is mostly homogeneous T1/T2 isointense with small focus of intrinsic T1 hyperintense signal, no fat density, positive for restricted diffusion and no enhancement. The cyst is a circumscribed. No calcifications seen on the prior CT. There was a cyst on the CT from 2019 which is similar in size measuring 2.8 x 2.8 x 2.6 cm. No left adnexal cyst. Urinary system: Bladder wall is normal in thickness. Distal ureters are non distended. Urethra appears normal in morphology. Nodes and vessels: No pelvic or inguinal adenopathy by size criteria. Iliac vessels are normal in size. Probable small fat containing left inguinal hernia. Bowel and peritoneum: No pathologic free pelvic fluid. Inferior colon and small bowel loops are normal in caliber. Soft tissues: No inguinal hernias. No findings of pelvic floor incompetence in the absence of provocation. Bones: Marrow demonstrates normal overall signal. IMPRESSION: 1. Right ovarian circumscribed cyst measuring 3.6 cm. No suspicious enhancement. This may represent the same cyst which was seen in 2019 which measured 2.8 cm. Favor a benign cyst such as chronic a proteinaceous/hemorrhagic cyst. Endometrioma is also possibility. Lower suspicion for malignant cyst. Recommend continued imaging surveillance in approximately 6 months with ultrasound or cross-sectional imaging. 2. No free fluid. No endometrial thickening. No uterine adenomyosis. Dictated by: Todd Ontiveros M.D. on 09/30/2021 at 8:15 Approved by: Todd Ontiveros M.D. on 09/30/2021 at 8:36
== END ==
PROVIDERS: PCP Student in an Organized Health Care Education/Training Program; Referring Provider Obstetrics & Gynecology; Visit Provider Obstetrics & Gynecology
DX: R10.31 Right lower quadrant pain (principal); N83.8 Other noninflammatory disorders of ovary, fallopian tube and broad ligament; N83.201 Unspecified ovarian cyst, right side
CPT/HCPCS: 72197; A9579

== ENCOUNTER → 2022-02-17 11:07 | Outpatient (CLI) | payer OTHER, SELFPAY ==
[2022-02-17 11:49] LABS: Appearance Urine UA CLEAR; Bilirubin Urine UA NEGATIVE (NEGATIVE); Color Urine UA YELLOW; Glucose Urine UA NEGATIVE (Negative); Ketones Urine UA NEGATIVE (NEGATIVE); Leukocyte Esterase Urine UA TRACE (NEGATIVE); Nitrite Urine UA NEGATIVE (Negative); Occult Blood Urine UA 2+ (Negative); Protein Urine UA NEGATIVE (Negative); Urobilinogen Urine UA 0.2 E.U./dL (0.2)
[2022-02-17 11:54] LABS: RBC Urine None Seen (0-5/HPF); Squamous Epithelial Cell Urine 0-1 /HPF (0-5/HPF); WBC Urine 1-5/HPF (0-5/HPF)
[2022-02-17 11:55] LABS: Bacteria Urine Occasional (0-1); Culture Indicated Urine Specimen Cultured; Mucus Urine 1+ (Negative)
[2022-02-17 12:36] LABS: Cancer Antigen 125 6.5 U/mL (0-35); Carcinoembryonic Antigen 0.9 ng/mL (0.1-3.0)
[2022-02-20 13:11] LABS: Inhibin B <7.0 pg/mL (0.0-16.9)
== END ==
PROVIDERS: PCP Student in an Organized Health Care Education/Training Program; Referring Provider Obstetrics & Gynecology; Visit Provider Obstetrics & Gynecology
DX: N83.201 Unspecified ovarian cyst, right side (principal); K42.9 Umbilical hernia without obstruction or gangrene; R31.21 Asymptomatic microscopic hematuria; Z78.0 Asymptomatic menopausal state
CPT/HCPCS: 36415; 81001; 82105; 82378; 83520; 86304; 87077; 87086; 87186; 99212

== ENCOUNTER → 2022-02-24 11:48 | Outpatient (CLI) | payer OTHER, SELFPAY | PROVIDERS: PCP Student in an Organized Health Care Education/Training Program; Referring Provider Student in an Organized Health Care Education/Training Program; Visit Provider Student in an Organized Health Care Education/Training Program | DX: Z78.0 Asymptomatic menopausal state (principal); M85.851 Other specified disorders of bone density and structure, right thigh; M85.852 Other specified disorders of bone density and structure, left thigh | CPT/HCPCS: 77080 ==

== ENCOUNTER → 2022-03-07 13:25 | Outpatient (CLI) | payer OTHER, SELFPAY ==
[2022-03-07 15:29] LABS: Appearance Urine UA CLEAR; Bilirubin Urine UA NEGATIVE (NEGATIVE); Color Urine UA YELLOW; Glucose Urine UA NEGATIVE (Negative); Ketones Urine UA NEGATIVE (NEGATIVE); Leukocyte Esterase Urine UA NEGATIVE (NEGATIVE); Nitrite Urine UA NEGATIVE (Negative); Occult Blood Urine UA 3+ (Negative); Protein Urine UA NEGATIVE (Negative); Specific Gravity Urine UA >=1.030 (1.000-1.035); Urobilinogen Urine UA 0.2 E.U./dL (0.2)
[2022-03-07 15:31] LABS: Bacteria Urine None Seen; Culture Indicated Urine Cult Not Indicated; RBC Urine 5-10/HPF (0-5/HPF); WBC Urine None Seen (0-5/HPF)
== END ==
PROVIDERS: PCP Student in an Organized Health Care Education/Training Program; Referring Provider Obstetrics & Gynecology; Visit Provider Obstetrics & Gynecology
DX: N39.0 Urinary tract infection, site not specified (principal)
CPT/HCPCS: 81001

== ENCOUNTER → 2022-03-20 07:09 | Outpatient (CLI) | payer OTHER, SELFPAY ==
--- NOTE | 2022-03-20 | DI.MG.S_ITS ---
BILATERAL DIGITAL SCREENING MAMMOGRAM 3D/2D WITH CAD: 03/20/2022 CLINICAL: Routine screening. Comparison is made to exams dated: 12/27/2020 mammogram, 12/10/2019 mammogram, 06/25/2018 mammogram - [facility], 06/11/2017 mammogram - [facility], and 01/14/2021 mammogram - [facility]. There are scattered areas of fibroglandular density in both breasts (category b / 25%-50% glandular tissue). Current study was also evaluated with a Computer Aided Detection (CAD) system. No significant masses, calcifications, or other findings are seen in either breast. There has been no significant interval change. IMPRESSION: NEGATIVE There is no mammographic evidence of malignancy. A 1 year screening mammogram is recommended. Based on the Tyrer Cuzick model (a risk assessment model) the patient's lifetime risk is 3.4% and her 10 year risk is 1.7%. According to the ACR, ACS, and NCCN guidelines, an annual breast MRI exam along with mammogram is recommended if the patient's lifetime risk is 20% or greater. This exam was interpreted at Station ID: [id number]. NOTE: For mammograms, a report in lay terms will be sent to the patient. Approximately 15% of breast malignancies will not be visualized mammographically. In the management of a palpable breast mass, a negative mammogram must not discourage biopsy of a clinically suspicious lesion. Electronically Signed By: Todd de santiago/kieran:03/20/2022 09:52:21 copy to: Santino Abad letter sent: Normal Exam ACR BI-RADS Category 1: Negative 3341F
== END ==
PROVIDERS: PCP Student in an Organized Health Care Education/Training Program; Referring Provider Obstetrics & Gynecology; Visit Provider Obstetrics & Gynecology
DX: Z12.31 Encounter for screening mammogram for malignant neoplasm of breast (principal)
CPT/HCPCS: 77063; 77067

== ENCOUNTER → 2022-03-23 11:12 | Outpatient (CLI) | payer OTHER, SELFPAY | PROVIDERS: PCP Student in an Organized Health Care Education/Training Program; Visit Provider Obstetrics & Gynecology | DX: R31.9 Hematuria, unspecified (principal) | CPT/HCPCS: 87086 ==

== ENCOUNTER → 2022-03-27 07:45 | Outpatient (CLI) | payer OTHER, SELFPAY ==
[2022-03-27 08:21] LABS: COVID19 -Nasal RAPID Negative (Negative)
--- NOTE | 2022-03-29 09:40 | PM.PFT.1 ---
Pulmonary Function Test Referral & Results Date Patient Seen: 03/27/22 Requesting provider: Santino Whittington Results: The spirometry demonstrates an FVC of 2.83 L which is 81% of predicted. The FEV1 was measured at 2.06 L which is 78% of predicted. The FEV1/FVC ratio was 73 which is 94% of predicted. Following the administration of bronchodilator there was no appreciable change. Lung volumes show an SVC of 2.90 L which is 90% of predicted. The diffusing capacity was measured at 18.58 which is 65% of predicted. No hemoglobin value was provided, so no correction for potential anemia could be made, if appropriate. The maximum voluntary ventilation was reduced Interpretation: This study demonstrates possibly mild obstructive lung disease based on reduction FEV1, although FEV1/FVC ratio is preserved and there is no evidence of benefit after bronchodilator There is a mild to moderate reduction in diffusing capacity suggesting disease at the capillary alveolar level Clinical correlation suggested
== END ==
PROVIDERS: PCP Student in an Organized Health Care Education/Training Program; Referring Provider Student in an Organized Health Care Education/Training Program; Visit Provider Student in an Organized Health Care Education/Training Program
DX: J98.8 Other specified respiratory disorders (principal); R68.89 Other general symptoms and signs; F17.210 Nicotine dependence, cigarettes, uncomplicated; Z20.822 Contact with and (suspected) exposure to COVID-19
CPT/HCPCS: 87635; 94060; 94726; 94729; C9803

== ENCOUNTER → 2023-10-02 16:31 | Outpatient (CLI) | payer OTHER, SELFPAY ==
--- NOTE | 2023-10-02 16:42 | DI.RAD.S_ITS ---
PROCEDURE: XR CERVICAL SPINE 2V OR 3V INDICATIONS: NECK/SCIATICA PAIN TECHNIQUE: 3 view(s) of the cervical spine were acquired. COMPARISON: None. FINDINGS: Bones: Moderate to severe degenerative changes. There is trace retrolisthesis of C5 on C6. Vertebral body heights are well maintained otherwise. No traumatic subluxation. There is straightening of normal cervical lordosis. Soft tissues: No pathologic prevertebral soft tissue swelling. IMPRESSION: Moderate to severe spondylotic changes. Straightening of the normal lordosis. If there is high concern for further derangement, consider MRI evaluation. Dictated by: Nader Layton M.D. on 10/03/2023 at 9:11 Approved by: Nader Layton M.D. on 10/03/2023 at 9:12
--- NOTE | 2023-10-02 16:42 | DI.RAD.S_ITS ---
PROCEDURE: XR LUMBAR SPINE MIN 4V INDICATIONS: NECK/SCIATICA PAIN TECHNIQUE: 5 views of the lumbar spine were acquired, including bilateral oblique views. COMPARISON: None. FINDINGS: Bones: Moderate rightward spinal curvature. No traumatic subluxation. Vertebral body heights are well maintained. Oblique views are limited by spinal curvature and overlapping bowel gas. Trace retrolisthesis of L3 on L4 and L1 on L2 and T12 on L1. Overall moderate degenerative changes. Soft tissues: No pathologic calcifications. Hip degenerative changes. Cholecystectomy clips. IMPRESSION: Moderate rightward spinal curvature and spondylosis. Multilevel trace retrolisthesis, likely degenerative. If there is high concern for further derangement, consider MRI evaluation. Dictated by: Nader Layton M.D. on 10/03/2023 at 9:12 Approved by: Nader Layton M.D. on 10/03/2023 at 9:14
== END ==
PROVIDERS: PCP Student in an Organized Health Care Education/Training Program; Referring Provider Chiropractor; Visit Provider Chiropractor
DX: M47.812 Spondylosis without myelopathy or radiculopathy, cervical region (principal); M47.816 Spondylosis without myelopathy or radiculopathy, lumbar region; M54.2 Cervicalgia; M54.40 Lumbago with sciatica, unspecified side
CPT/HCPCS: 72040; 72110

== ENCOUNTER → 2024-03-18 15:21 | Outpatient (CLI) | payer OTHER, SELFPAY | PROVIDERS: PCP Family Medicine; Visit Provider Student in an Organized Health Care Education/Training Program | DX: R35.0 Frequency of micturition (principal) | CPT/HCPCS: 87077; 87086; 87186 ==

== ENCOUNTER → 2024-04-18 09:55 | Outpatient (CLI) | payer OTHER, SELFPAY ==
--- NOTE | 2024-04-18 09:57 | DI.RAD.S_ITS ---
PROCEDURE: XR KNEE RT 1TO2V INDICATIONS: Right knee pain TECHNIQUE: 3 views of the knee were acquired. COMPARISON: None. FINDINGS: Bones: No fractures or dislocations. Auzl-rl-yibmunbd tricompartmental osteoarthritis in right knee is seen more notably in medial femoral tibial compartment and patellofemoral compartment. No suspicious bony lesions. Soft tissues: Small to moderate suprapatella joint effusion. No suspicious soft tissue calcifications. IMPRESSION: No acute right knee fracture or dislocation. Xyoa-aj-hrwhtcdv tricompartmental osteoarthritis more notably in medial femoral tibial compartment and patellofemoral compartment. Small to moderate joint effusion. Dictated by: Tono Mtz M.D. on 04/18/2024 at 14:40 Approved by: Tono Mtz M.D. on 04/18/2024 at 14:40
--- NOTE | 2024-04-18 09:57 | DI.RAD.S_ITS ---
PROCEDURE: XR HIP W PEL IF DONE RT 2V INDICATIONS: Right hip pain/injury TECHNIQUE: AP pelvis with lateral view(s) of the right hip(s). COMPARISON: None. FINDINGS: Bones: No fractures or dislocations. Wmhp-mj-egzqsabe bilateral hip joint osteoarthritic changes are seen. No evidence of avascular necrosis of femoral head. Pelvic ring appears intact. No suspicious bony lesions. Soft tissues: The visualized bowel gas pattern is normal. No suspicious soft tissue calcifications. IMPRESSION: Symmetric appearing bbgf-pg-ezrguehm bilateral hip joint osteoarthritis. No pelvic or hip fracture. No evidence of avascular necrosis. Dictated by: Tono Mtz M.D. on 04/18/2024 at 14:41 Approved by: Tono Mtz M.D. on 04/18/2024 at 14:41
--- NOTE | 2024-04-18 09:57 | DI.RAD.S_ITS ---
PROCEDURE: XR FOOT RT 2V INDICATIONS: Right foot pain TECHNIQUE: 2 views of the foot were acquired. COMPARISON: None. FINDINGS: Bones: No fractures or dislocations. Small plantar calcaneal enthesophyte is seen. Mild hallux valgus is noted. Mild to moderate right foot osteoarthritis most notably in great toe. No suspicious bony lesions. Soft tissues: No tibiotalar joint effusion. Achilles tendon appears normal. IMPRESSION: Gcgj-ef-ixeiaidz right foot osteoarthritis. No fracture or dislocation. No gross soft tissue abnormalities. Dictated by: Tono Mtz M.D. on 04/18/2024 at 14:41 Approved by: Tono Mtz M.D. on 04/18/2024 at 14:42
[2024-04-18 11:00] LABS: Hemoglobin A1C% w Est Avg Glu 5.6 % (4.0-6.0)
[2024-04-18 11:10] LABS: Add Manual Diff / Slide Review NO; Alanine Aminotransferase 16 IU/L (<35); Albumin 4.8 g/dL (3.5-5.0); Albumin Globulin Ratio 1.4 (1.0-2.8); Alkaline Phosphatase 61 U/L (38-126); Aspartate Aminotransferase 21 IU/L (14-36); BUN Creatinine Ratio 27.8 (6-22); Basophils Absolute Auto 100 /uL (0-100); Bilirubin Total 0.3 mg/dL (0.2-1.3); Blood Urea Nitrogen 20 mg/dL (7-17); Calcium 10.4 mg/dL (8.4-10.2); Carbon Dioxide 27 mmol/L (22-32); Chloride 101 mmol/L (98-107); Cholesterol 175 mg/dL (140-199); Eosinophils Absolute Auto 100 /uL (0-450); Eosinophils Percent Auto 2.5 % (2-4); Estimated Glomerular Filt Rate > 60 mL/min (>60); Globulin 3.4 g/dL (1.7-4.1); Glucose 108 mg/dL (80-110); HDL Cholesterol 58 mg/dL (40-60); HEMOLYSIS < 15 (0-50); Hematocrit 36.2 % (36-46); Hemoglobin 11.9 g/dL (12.0-16.0); LDL Cholesterol Calculated 53 mg/dL (<100); Lymphocytes Absolute Auto 1400 /uL (1100-4500); Lymphocytes Percent Auto 26.5 % (25-40); Mean Corpuscular HGB Conc 32.9 % (30-36); Mean Corpuscular Hemoglobin 29.1 PG (26-34); Mean Corpuscular Volume 88.3 fL (80-100); Monocytes Absolute Auto 400 /uL (0-900); Monocytes Percent Auto 8.6 % (3-14); Neutrophils Absolute Auto 3200 /uL (1500-7000); Neutrophils Percent Auto 61.4 % (50-75); Platelet Count 226 X10^3/uL (150-400); Potassium 4.7 mmol/L (3.4-5.1); Red Cell Distribution Width 16.5 % (11.6-14.8); Sodium 137 mmol/L (137-145); Total Protein 8.2 g/dL (6.3-8.2); Triglycerides 321 mg/dL (35-150); White Blood Cell Count 5.1 X10^3/uL (4.5-11.0)
== END ==
PROVIDERS: PCP Family Medicine; Referring Provider Family Medicine; Visit Provider Family Medicine
DX: M17.11 Unilateral primary osteoarthritis, right knee (principal); M16.0 Bilateral primary osteoarthritis of hip; M19.071 Primary osteoarthritis, right ankle and foot; M20.11 Hallux valgus (acquired), right foot; M25.461 Effusion, right knee; M25.561 Pain in right knee; M25.551 Pain in right hip; M79.671 Pain in right foot; R73.03 Prediabetes; E78.5 Hyperlipidemia, unspecified
CPT/HCPCS: 36415; 73502; 73560; 73620; 80053; 80061; 83036; 85025

== ENCOUNTER → 2024-05-12 15:58 | Outpatient (CLI) | payer OTHER, SELFPAY ==
--- NOTE | 2024-05-12 16:00 | DI.MG.S_ITS ---
BILATERAL DIGITAL SCREENING MAMMOGRAM 3D/2D WITH CAD: 05/12/2024 CLINICAL: Routine screening. Comparison is made to exams dated: 03/20/2022 mammogram, 12/27/2020 mammogram, and 12/10/2019 mammogram - [facility]. There are scattered areas of fibroglandular density (category b / 25%-50% glandular tissue). Current study was also evaluated with a Computer Aided Detection (CAD) system. No significant masses, calcifications, or other findings are seen in either breast. There has been no significant interval change. IMPRESSION: NEGATIVE There is no mammographic evidence of malignancy. A 1 year screening mammogram is recommended. Based on the Tyrer Cuzick model (a risk assessment model) the patient's lifetime risk is 3.0% and her 10 year risk is 1.8%. According to the ACR, ACS, and NCCN guidelines, an annual breast MRI exam along with mammogram is recommended if the patient's lifetime risk is 20% or greater. This exam was interpreted at Station ID: [id number]. NOTE: For mammograms, a report in lay terms will be sent to the patient. Approximately 15% of breast malignancies will not be visualized mammographically. In the management of a palpable breast mass, a negative mammogram must not discourage biopsy of a clinically suspicious lesion. Electronically Signed By: Jensen hamilton/kieran:05/13/2024 07:23:23 copy to: Santino Abad letter sent: Normal Exam ACR BI-RADS Category 1: Negative
== END ==
PROVIDERS: PCP Family Medicine; Referring Provider Family Medicine; Visit Provider Family Medicine
DX: Z12.31 Encounter for screening mammogram for malignant neoplasm of breast (principal)
CPT/HCPCS: 77063; 77067

== ENCOUNTER → 2024-05-20 15:17 | Outpatient (CLI) | payer OTHER, SELFPAY ==
[2024-05-20 16:57] LABS: Add Manual Diff / Slide Review NO; Basophils Absolute Auto 0 /uL (0-100); Basophils Percent Auto 1.2 % (0-2); Eosinophils Absolute Auto 100 /uL (0-450); Eosinophils Percent Auto 2.4 % (2-4); Hematocrit 35.6 % (36-46); Hemoglobin 11.8 g/dL (12.0-16.0); Lymphocytes Absolute Auto 1100 /uL (1100-4500); Lymphocytes Percent Auto 27.3 % (25-40); Mean Corpuscular HGB Conc 33.1 % (30-36); Mean Corpuscular Hemoglobin 28.9 PG (26-34); Mean Corpuscular Volume 87.2 fL (80-100); Monocytes Absolute Auto 300 /uL (0-900); Neutrophils Absolute Auto 2400 /uL (1500-7000); Neutrophils Percent Auto 61.1 % (50-75); Platelet Count 182 X10^3/uL (150-400); Red Blood Cell Count 4.08 X10^6/uL (4.0-5.2); Red Cell Distribution Width 15.8 % (11.6-14.8); White Blood Cell Count 3.9 X10^3/uL (4.5-11.0)
[2024-05-20 17:18] LABS: Alanine Aminotransferase 14 IU/L (<35); Albumin 4.7 g/dL (3.5-5.0); Albumin Globulin Ratio 1.4 (1.0-2.8); Alkaline Phosphatase 61 U/L (38-126); Aspartate Aminotransferase 20 IU/L (14-36); Bilirubin Total 0.5 mg/dL (0.2-1.3); Blood Urea Nitrogen 16 mg/dL (7-17); Calcium 9.5 mg/dL (8.4-10.2); Carbon Dioxide 28 mmol/L (22-32); Chloride 103 mmol/L (98-107); Estimated Glomerular Filt Rate > 60 mL/min (>60); Globulin 3.4 g/dL (1.7-4.1); Glucose 109 mg/dL (80-110); Potassium 4.1 mmol/L (3.4-5.1); Sodium 138 mmol/L (137-145); Total Protein 8.1 g/dL (6.3-8.2)
[2024-05-20 17:35] LABS: Vitamin D 25 Hydroxy (D3) 27.7 ng/mL (30.0-100.0)
[2024-05-20 17:52] LABS: Ferritin 53 ng/mL (11-264)
[2024-05-20 18:12] LABS: HEMOLYSIS < 15 (0-50); Vitamin B12 387 pg/mL (239-931)
[2024-05-21 21:07] LABS: Calcium 9.3 mg/dL (8.7-10.3); Parathyroid Hormone, Intact 39 pg/mL (15-65)
== END ==
PROVIDERS: PCP Family Medicine; Referring Provider Family Medicine; Visit Provider Family Medicine
DX: R73.03 Prediabetes (principal); E78.5 Hyperlipidemia, unspecified; D64.9 Anemia, unspecified
CPT/HCPCS: 36415; 80053; 82306; 82310; 82607; 82728; 83970; 85025

== ENCOUNTER → 2024-06-13 07:42 | Outpatient (CLI) | payer OTHER, SELFPAY ==
--- NOTE | 2024-06-13 07:43 | DI.US.S_ITS ---
PROCEDURE: US PELVIC COMPLETE INDICATIONS: Cyst of right ovary TECHNIQUE: Real-time scanning was performed of the pelvic organs, with image documentation. Additional endovaginal scanning was necessary due to incomplete visualization of the adnexal and endometrial structures by transabdominal scanning. COMPARISON: [facility], CT, CT IVP, 04/06/2023, 15:00. [facility], MR, MR PELVIS WO/W CON, 09/29/2021, 16:38. [facility], US, US PELVIC COMPLETE, 09/06/2021, 15:00. FINDINGS: Uterus: Uterus is anteverted and normal in size at 6.1 x 4.3 x 2.8 cm. The myometrium is homogeneous. The endometrium measures 3.8 mm combined thickness. Simple fluid within the endometrium. Ovaries: The right ovary measures 3.9 x 3.0 x 2.7 cm, with a calculated ovarian volume of 16.5 cc. The left ovary measures 2.0 x 1.5 x 0.9 cm, with a calculated ovarian volume of 1.4 cc. Ill-defined right ovarian cystic lesion with hypoechoic components is again seen. Measurements difficult given unclear margins. Other: No pathologic free abdominal or pelvic fluid. IMPRESSION: Persistent right ovarian cystic lesion, with a hypoechoic components. Given perceived internal complexity and poor visualization, consider repeat MRI with contrast (gynecologic mass protocol). We strive to produce accurate, complete, and clear reports of imaging services. To assist us in improving patient care, this report was composed using standard report templates and voice recognition software. Therefore, it may contain abnormal punctuation, insertions and/or omissions. Occasional wrong-word or sound-alike substitutions may occur. Though we review the report and make efforts to correct it, we do recommend that the report be read carefully in proper context to recognize any text inaccuracies. Dictated by: Raymond Ball M.D. on 06/13/2024 at 11:55 Approved by: Raymond Ball M.D. on 06/13/2024 at 12:02
--- NOTE | 2024-06-13 07:44 | DI.RAD.S_ITS ---
PROCEDURE: XR DEXA AXIAL SKELETON INDICATIONS: Post menopause COMPARISON: [facility], CR, XR DEXA AXIAL SKELETON, 02/24/2022, 13:36. FINDINGS: Lumbar Spine: Bone mineral density 1.165 g/cm2, T score 1.2. There is interval 7.5% increase in total lumbar spine bone mineral density. Left Femoral Neck: Bone mineral density 0.625 g/cm2, T score -2.0. There is interval 4.6% decrease in left femoral neck bone mineral density. Left Hip: Bone mineral density 0.800 g/cm2, T score -1.2. There is interval 0.8% increase in total left hip bone mineral density. Fracture Risk Calculation (when applicable): 10-year fracture risk of a major osteoporotic fracture 11 percent and of a hip fracture 1.8 percent. (T score greater or equal to -1.0 to: NORMAL) (T score from -1.1 to -2.4: OSTEOPENIA) (T score less than or equal to -2.5: OSTEOPOROSIS) IMPRESSION: Osteopenia with increased 10 year fracture risk. Follow-up guidelines as follows: Osteoporosis: Consider a repeat DEXA and Vertebral Fracture Assessment (VFA) exam in 2 years or sooner if medically necessary, to reassess this patient's status. Osteopenia: Consider a repeat DEXA in 2-3 years to reassess this patient's status, or if there is a new clinical indication. Normal: Consider a repeat DEXA in 5 years or sooner, or if there is a new clinical indication. All treatment decisions require clinical judgment and consideration of individual patient factors, including patient preferences, comorbidities, previous drug use, risk factors not captured in the FRAX model (e.g., frailty, falls, vitamin D deficiency, increased bone turnover, interval significant decline in bone density ) and possible under- or over-estimation of fracture risk by FRAX. In addition, the NOF Guide recommends that FDA-approved medical therapies be considered in postmenopausal women and men age >= 50 years with a: * Hip or vertebral (clinical or morphometric) fracture * T-score of <=-2.5 at the spine or hip * Ten-year fracture probability by FRAX of >= 3% for hip fracture or >=20% for major osteoporotic fracture. Dictated by: Tono Mtz M.D. on 06/13/2024 at 13:32 Approved by: Tono Mtz M.D. on 06/13/2024 at 13:44
== END ==
PROVIDERS: PCP Family Medicine; Referring Provider Family Medicine; Visit Provider Family Medicine
DX: N83.201 Unspecified ovarian cyst, right side (principal); M85.852 Other specified disorders of bone density and structure, left thigh; Z78.0 Asymptomatic menopausal state
CPT/HCPCS: 76830; 76856; 77080

== ENCOUNTER → 2024-11-25 15:31 | Outpatient (CLI) | payer OTHER, SELFPAY ==
--- NOTE | 2024-11-25 15:35 | DI.RAD.S_ITS ---
PROCEDURE: XR CHEST 2V INDICATIONS: cough TECHNIQUE: 2 views of the chest were acquired. COMPARISON: No prior chest x-ray available for comparison. FINDINGS: Gtuf-sb-bxwrcsas bilateral diffuse peribronchial thickening, more than expected for artifact from expiratory result and subsegmental atelectasis. Bronchitis, viral infection, asthma or other process should be considered. Mild bilateral apical pleural thickening/scarring. Mild calcifications of the aortic arch and tortuous descending aorta. Moderate levoscoliosis of the thoracic spine. No pneumothorax, no pleural effusion, no lobar consolidation IMPRESSION: Peribronchial thickening as discussed above. Follow-up suggested. If symptoms persist or worsen, CT chest could be performed. Dictated by: Alexander Modi M.D. on 11/26/2024 at 15:31 Approved by: Alexander Modi M.D. on 11/26/2024 at 15:35
[2024-11-25 16:30] LABS: Add Manual Diff / Slide Review NO; Hematocrit 34.4 % (36-46); Hemoglobin 11.5 g/dL (12.0-16.0); Lymphocytes Absolute Auto 1400 /uL (1100-4500); Mean Corpuscular HGB Conc 33.4 % (30-36); Mean Corpuscular Hemoglobin 29.4 PG (26-34); Mean Corpuscular Volume 87.9 fL (80-100); Platelet Count 191 X10^3/uL (150-400)
[2024-11-25 16:49] LABS: Alanine Aminotransferase 16 IU/L (<35); Albumin 4.6 g/dL (3.5-5.0); Albumin Globulin Ratio 1.4 (1.0-2.8); Alkaline Phosphatase 56 U/L (38-126); Blood Urea Nitrogen 21 mg/dL (7-17); Calcium 9.8 mg/dL (8.4-10.2); Carbon Dioxide 27 mmol/L (22-32); Chloride 103 mmol/L (98-107); Estimated Glomerular Filt Rate > 60 mL/min (>60); Globulin 3.2 g/dL (1.7-4.1); Glucose 110 mg/dL (70-99); HEMOLYSIS < 15 (0-50); Potassium 4.6 mmol/L (3.4-5.1); Sodium 140 mmol/L (137-145); Total Protein 7.8 g/dL (6.3-8.2)
[2024-11-25 17:11] LABS: Vitamin D 25 Hydroxy (D3) 41.3 ng/mL (30.0-100.0)
[2024-11-25 17:23] LABS: TSH w/ Reflex to FT4 2.32 uIU/mL (0.47-4.68)
[2024-11-25 17:24] LABS: Ferritin 60 ng/mL (11-264)
[2024-11-25 17:59] LABS: Folate > 20.0 ng/mL (2.76-20.0); Vitamin B12 371 pg/mL (239-931)
[2024-11-27 11:24] LABS: Legionella pneumo Antigen Negative (Negative)
== END ==
LOC: RAD 15:35
PROVIDERS: PCP Family Medicine; Referring Provider Family Medicine; Visit Provider Family Medicine
DX: J92.9 Pleural plaque without asbestos (principal); R05.2 Subacute cough; R00.2 Palpitations; R53.82 Chronic fatigue, unspecified; R53.83 Other fatigue; D64.9 Anemia, unspecified; D72.819 Decreased white blood cell count, unspecified; E83.52 Hypercalcemia; I70.0 Atherosclerosis of aorta; M41.9 Scoliosis, unspecified
CPT/HCPCS: 36415; 71046; 80053; 82306; 82607; 82728; 82746; 84443; 85025; 87449

== ENCOUNTER → 2024-12-29 15:49 | Outpatient (CLI) | payer OTHER, SELFPAY ==
[2024-12-29 16:58] LABS: Hemoglobin A1C% w Est Avg Glu 5.5 % (4.0-6.0)
== END ==
PROVIDERS: PCP Family Medicine; Referring Provider Family Medicine; Visit Provider Family Medicine
DX: R73.03 Prediabetes (principal); E66.9 Obesity, unspecified
CPT/HCPCS: 36415; 83036

== ENCOUNTER → 2025-03-20 13:11 | Outpatient (CLI) | payer OTHER, SELFPAY ==
--- NOTE | 2025-03-20 13:11 | DI.CT.S_ITS ---
PROCEDURE: CT LUNG LOW DOSE SCREENING INDICATIONS: HX of nicotine dependence TECHNIQUE: Noncontrast 2.0-2.5 mm thick sections acquired from the pulmonary apices to the posterior costophrenic angles. 7 mm thick axial MIP, and 5 mm coronal and sagittal reformats were then acquired. For radiation dose reduction, the following was used: automated exposure control, adjustment of mA and/or kV according to patient size. COMPARISON: None. FINDINGS: Image quality: Diagnostic. Lower Neck: No enlarged lymph nodes. Thyroid: No thyroid nodules which require sonographic follow up, per consensus guidelines. Axillae: No enlarged lymph nodes. Chest Wall: Unremarkable. Bones: No aggressive appearing osseous lesion. Multilevel DDD. Small Schmorl's nodes. Lungs and Pleura: No pneumothorax or pleural effusions. No consolidation or suspicious nodules. A few micro nodules. Heart: Heart size is normal. Mild coronary artery calcifications. No pericardial effusion. Thoracic Vessels: The aorta and pulmonary arteries demonstrate normal size. Mediastinum and Cecelia: No enlarged lymph nodes. Esophagus: No wall thickening. Small hiatal hernia. Upper Abdomen: Visualized upper abdomen solid organs and bowel loops appear normal. IMPRESSION: No suspicious pulmonary nodules. A few micro nodules. LUNG-RADS 2; continued annual screening, if eligible. Clinically Significant Non-pulmonary Findings: None. Small hiatal hernia. Dictated by: Todd Ontiveros M.D. on 03/20/2025 at 14:21 Approved by: Todd Ontiveros M.D. on 03/20/2025 at 14:57
== END ==
PROVIDERS: PCP Family Medicine; Referring Provider Family Medicine; Visit Provider Family Medicine
DX: Z12.2 Encounter for screening for malignant neoplasm of respiratory organs (principal); R91.8 Other nonspecific abnormal finding of lung field; Z87.891 Personal history of nicotine dependence; I25.10 Atherosclerotic heart disease of native coronary artery without angina pectoris; K44.9 Diaphragmatic hernia without obstruction or gangrene
CPT/HCPCS: 71271

== ENCOUNTER → 2025-03-26 14:13 | Outpatient (CLI) | payer OTHER, SELFPAY ==
--- NOTE | 2025-03-26 14:14 | DI.NM.S_ITS ---
PROCEDURE: NM EXERCISE TREADMILL NON NUC COMPARISON: None. INDICATIONS: palpitations FINDINGS: Patient exercised per the standard [facility] protocol. Total exercise time was 3 minutes and 10 seconds. Test was terminated secondary to knee pain. Maximal heart rate attained is 108 bpm which is 72.6% of maximal predicted heart rate. Maximum blood pressure was 140/80[place] [id number]. Significant baseline artifact was noted throughout the test thus I am unable to comment on any ischemic changes. Due to significant baseline artifact, interpretation for arrhythmias was also very limited. No chest pains voiced. Normal heart rate and blood pressure response to exercise present. IMPRESSION: Nondiagnostic exercise treadmill stress test due to inability to reach target heart rate and significant baseline artifact. Dictated by: Erik Mtz M.D. on 03/26/2025 at 16:33 Approved by: Erik Mtz M.D. on 03/26/2025 at 16:35
== END ==
LOC: ECHO 14:13
PROVIDERS: PCP Family Medicine; Referring Provider Internal Medicine; Visit Provider Internal Medicine
DX: R00.2 Palpitations (principal)
CPT/HCPCS: 93017

== ENCOUNTER → 2025-03-31 15:25 | Outpatient (CLI) | payer OTHER, SELFPAY ==
--- NOTE | 2025-03-31 15:26 | DI.ECHO.S_ITS ---
[facility] : : [address] : : [place] : : [id number] : : Phone: [phone] Echocardiogram Report + + :Name: MAGED CABEZAS Study Date: 03/31/2025 Height: 68 in : :[facility] ReadingLocation: Weight: 210 lb : : Gender: Female BSA: 2.1 m2 : :: 1955 Age: 70 yrs BP: 143/81 mmHg: :Reason For Study: Palpitations : :Ordering Physician: CHRIS MTZ Performed By: Jhony Palma : :Referring: CHRIS MTZ : + + Interpretation Summary - Normal LV contractility with EF > 55% and no WMA. No LVH. Unable to comment on diastolic function. - Normal RV contractility. - Normal chamber sizes. - No significant valvular abnormalities. - No obvious intracardiac shunts. - No obvious intracardiac masses/thrombi. - No hemodynamically significant pericardial effusion. - Low right sided filling pressures. Conclusion: Normal biventricular systolic function with no significant valvular abnormalities. Procedure: A two-dimensional transthoracic echocardiogram with color flow and Doppler was performed. The study quality was technically adequate. There is no prior echocardiogram noted for this patient. The patient was in normal sinus rhythm during the exam. Left Ventricle: The left ventricle is normal in size and wall thickness. Left ventricular systolic function is normal. The ejection fraction is estimated to be 60-65%. There are no focal wall motion abnormalities. Cannot determine left atrial pressure and grade of diastolic dysfunction. Right Ventricle: The right ventricle is normal in size and function. Atria: The left atrial size is normal. Right atrial size is normal. There is no Doppler evidence for an interatrial shunt. Mitral Valve: The mitral valve leaflets appear to open well. There is no mitral valve stenosis. There is trace mitral regurgitation. Aortic Valve: The aortic valve is trileaflet. The aortic valve opens well. There is no aortic valve stenosis. There is trace aortic regurgitation. Tricuspid Valve: The tricuspid valve leaflets are thin and pliable. There is trace tricuspid regurgitation. The right ventricular systolic pressure is estimated to be at least 19 mmHg based on an estimated right atrial pressure of 3 mm Hg. Pulmonic Valve: The pulmonic valve is not well seen, but is grossly normal. There is trace pulmonic regurgitation. Great Vessels: The aortic root is normal size. The ascending aorta is normal in size. The aortic arch could not be visualized. The pulmonary artery is normal size. The IVC is of normal diameter and collapses greater than 50% with a sniff. This suggests a low right atrial pressure of 3 mm Hg. Pericardium/ Pleura There is no pericardial effusion. MMode/2D Measurements & Calculations LVIDd: 4.7 cm LVOT diam: 2.0 cm LVIDs: 3.1 cm Ao root diam: 2.8 cm FS: 32.6 % asc Aorta Diam: 3.0 cm IVSd: 0.92 cm LVPWd: 0.94 cm LV ibanez. diameter/BSA (cm/m^2): 2.2 LV sys. diameter/BSA (cm/m^2): 1.5 LA A2 area: 15.1 cm2 IVC diam: 1.9 cm LA A4 area: 13.8 cm2 LA length (vol): 4.4 cm LA vol: 40.1 ml LA vol index: 19.2 ml/m2 RVD1 (basal): 3.4 cm RVD2 (mid): 2.7 cm TAPSE: 2.4 cm Doppler Measurements & Calculations Ao V2 max: 120.2 cm/sec LVOT Max Fidencio: 97.7 cm/sec Ao V2 mean: 90.7 cm/sec LV V1 max P.8 mmHg Ao max P.8 mmHg LV V1 VTI: 18.5 cm Ao mean P.5 mmHg HANNAH(I,D): 2.5 cm2 Ao V2 VTI: 23.3 cm HANNAH(V,D): 2.5 cm2 sev ratio: 0.79 HANNAH indexed to BSA (cm^2/m^2): 1.2 MV E max fidencio: 67.2 cm/sec TR max fidencio: 197.4 cm/sec MV A max fidencio: 82.7 cm/sec TR max P.6 mmHg MV E/A: 0.81 PA V2 max: 96.6 cm/sec MV dec time: 0.19 sec PA V2 mean: 65.2 cm/sec PA mean P.9 mmHg PA pr(Accel): 39.2 mmHg SV(LVOT): 58.1 ml Reading Physician:LUISA
== END ==
LOC: ECHO 15:26
PROVIDERS: PCP Family Medicine; Referring Provider Family Medicine; Visit Provider Internal Medicine
DX: R00.2 Palpitations (principal)
CPT/HCPCS: 93306